=== PATIENT | female | born 1930 | race Caucasian/White ===

== ENCOUNTER → 2016-12-09 | Outpatient (CLI) | payer MEDICARE ==
[~2016-12-09] MED LIST: AMITRIPTYLINE TOP; ASPI-983 PO; CALC1TAB PO; CFTR250V IM; CHOL100011 PO; CITALOPRAM TOP; CLOB15CR3 TP; CLOP75TA PO; CLOP75TA69 PO; CYAN100053 IJ; DIAZ2TAB2 PO; DIAZ5TAB3 PO; ESTR42.52 VG; EZET10TA5 PO; FENT1PAT6 TD; FLUT9.9S NS; LACT1CAP58 PO; LACT1CAP62 PO; LEVO88TA2 PO; LVT.088T PO; METH454P PO; METH479P4 PO; MULT-1029 PO; OMEG-160 PO; OMEP40CA36 PO; ONDA-42 SL
== END ==
LOC: CARD 13:08
PROVIDERS: ATTEND Physician Assistant
DX: I65.23 Occlusion and stenosis of bilateral carotid arteries (principal); E78.2 Mixed hyperlipidemia; I10 Essential (primary) hypertension; I73.9 Peripheral vascular disease, unspecified
CPT/HCPCS: 93306

== ENCOUNTER → 2017-01-03 | Outpatient (CLI) | payer MEDICARE ==
--- NOTE | 2017-01-03 15:49 | Diagnostic Imaging Report ---
PROCEDURE: MRI lumbar spine. TECHNIQUE: Multiplanar, multisequence MRI of the lumbar spine was performed without contrast. INDICATION: Persistent mid and lower back pain. Patient fell 03/08/2016 with fractures of T10 and T12. FINDINGS: Lumbar spine shows good alignment. There is kyphoplasty cement within the L3 vertebral body in good position. The L3 vertebral body height is unchanged since previous CT scan of 01/15/2016. The remaining vertebral bodies show good preservation of body height. L1-L2: The disc shows normal contour. There is moderate posterior facet and ligamentous hypertrophy which is causing rerr-tv-dqqzwoaj encroachment upon the lateral recesses. L2-L3: There is settling of the disc space. There is eccentric disc herniation to the left extending into the left neural foramen. There is moderate posterior facet and ligamentous hypertrophy. These changes are causing mougvkya-ef-naqbwx encroachment upon the left lateral recess and left neural foramen. Minimal AP central canal dimension is approximately 6 mm. L3-L4: There is mild broad-based disc bulge. Moderate posterior facet and ligamentous hypertrophy present causing mild bilateral encroachment upon the lateral recesses. L4-L5: Minimal disc bulge present. Moderate posterior facet and ligamentous hypertrophy which is causing amff-ol-lmezdarz encroachment upon the lateral recesses and neural foramina. L5-S1: There is loss of disc space. There is hypertrophic bony change, most prominent in the midline and eccentric to the left. Mild posterior facet and ligamentous hypertrophy present. The SI joints are symmetrical. No evidence of sacral alar stress fractures. IMPRESSION: 1. No acute compression fractures are demonstrated. 2. Diffuse degenerative disc disease with facet and ligamentous hypertrophy. This is causing multilevel encroachment upon the lateral recesses and neural foramina as discussed above. No acute findings are demonstrated. Dictated by: Dictated on workstation # [id number]
--- NOTE | 2017-01-03 15:52 | Diagnostic Imaging Report ---
INDICATION: History of previous fall in February with compression fractures. Patient is having persistent back pain. COMPARISON: 03/25/2016. FINDINGS: Sagittal view shows good alignment of the vertebral bodies. Compression fracture of T10 and T12 are again noted. There has been some continued loss of body height at T12 with a somewhat plana appearance now. There is no edema now within either vertebral body consistent with healed compression fractures. The remaining thoracic vertebral bodies show normal height with no edema. No evidence of focal disc herniations. No spinal stenosis is demonstrated. Mild encroachment upon the neural foramen noted bilaterally at T10-T11 due to settling of the disc space and hypertrophic endplate changes. The thoracic cord appears normal without evidence of encroachment. No paraspinal masses. IMPRESSION: 1. Old healed compression fractures of T10 and T12. 2. There is some foraminal encroachment at T10-T11 bilaterally, though there is no central canal stenosis. 3. The thoracic cord appears normal. Dictated by: Dictated on workstation # [id number]
== END ==
LOC: RAD 12:53
PROVIDERS: ATTEND Orthopaedic Surgery
DX: M51.16 Intervertebral disc disorders with radiculopathy, lumbar region (principal); M54.6 Pain in thoracic spine
CPT/HCPCS: 72146; 72148

== ENCOUNTER → 2017-01-08 | Outpatient (CLI) | payer MEDICARE ==
--- NOTE | 2017-01-08 13:31 | Diagnostic Imaging Report ---
EXAMINATION: Three views of the thoracic spine. INDICATION: Thoracic spine pain. FINDINGS: There are compression fractures involving T10, T12, and probably a mild compression fracture of the T11 vertebral body. When correlated with the previous MRI from 01/03/2017, these appear to be chronic. There is kyphoplasty change at the L3 vertebral level. The alignment of the posterior spinal line appears satisfactory. There is prominent kyphotic curvature of the thoracic spine which appears to be exaggerated by the compression fractures of the lower thoracic levels. IMPRESSION: Compression fractures of T10, T11, and T12 which appear to be chronic based on the recent MRI of 01/03/2017. Dictated by: Dictated on workstation # [id number]
== END ==
LOC: RAD 10:10
DX: M48.54XA Collapsed vertebra, not elsewhere classified, thoracic region, initial encounter for fracture (principal)
CPT/HCPCS: 72072

== ENCOUNTER → 2017-04-10 | Outpatient (CLI) | payer MEDICARE ==
[~2017-04-10] VITALS: Ht 157.5 cm; Wt 47.6 kg
[~2017-04-10] MED LIST changes: +ZOLEDRONATE 5 MG/100 ML (RECLAST) BTL IV NR
[2017-04-10 12:45] VITALS: BP 141/62
[2017-04-10 13:16] LABS: MEAN PLATELET VOLUME 10.1 FL (7.4-10.4); RED BLOOD COUNT 3.98 10^6/uL (4.35-5.85); RED CELL DISTRIBUTION WIDTH 12.7 % (10.0-14.5)
[2017-04-10 13:34] LABS: ALANINE AMINOTRANSFERASE 22 U/L (0-55); ANION GAP 10 MMOL/L (5-14); ASPARTATE AMINO TRANSFERASE 31 U/L (5-34); BILIRUBIN,TOTAL 0.7 MG/DL (0.1-1.0); BLOOD UREA NITROGEN 13 MG/DL (7-18); BUN/CREATININE RATIO 16; CARBON DIOXIDE 27 MMOL/L (21-32); CHLORIDE 95 MMOL/L (98-107); CREATININE SERUM 0.79 MG/DL (0.60-1.30); GFR ESTIMATED > 60; GLUCOSE 93 MG/DL (70-105); POTASSIUM 3.9 MMOL/L (3.6-5.0); SODIUM 132 MMOL/L (135-145); TOTAL PROTEIN 6.8 GM/DL (6.4-8.2)
[2017-04-10 13:53] LABS: THYROID STIMULATING HORMONE 0.82 UIU/ML (0.35-4.94)
== END ==
LOC: SDC 12:39
PROVIDERS: ATTEND Nurse Practitioner Family
DX: M81.8 Other osteoporosis without current pathological fracture (principal); R53.81 Other malaise; R53.83 Other fatigue
CPT/HCPCS: 36415; 80053; 84443; 85027; 96365

== ENCOUNTER → 2018-04-13 | Outpatient (CLI) | payer MEDICARE ==
[~2018-04-13] VITALS: Ht 157.5 cm; Wt 47.6 kg
[~2018-04-13] MED LIST changes: +ZOLEDRONATE (NON-FORMULARY) 100 ML IV NR; +ZOLEDRONATE (NON-FORMULARY) 100 ML IV ONE; -ZOLEDRONATE 5 MG/100 ML (RECLAST) BTL IV NR
[2018-04-13 14:18] VITALS: BP 167/69
== END ==
LOC: SDC 13:40
PROVIDERS: ATTEND Nurse Practitioner Family
DX: M81.0 Age-related osteoporosis without current pathological fracture (principal)
CPT/HCPCS: 96365

== ENCOUNTER → 2019-01-12 | Outpatient (CLI) | payer MEDICARE ==
[~2019-01-12] MED LIST changes: -ZOLEDRONATE (NON-FORMULARY) 100 ML IV NR; -ZOLEDRONATE (NON-FORMULARY) 100 ML IV ONE
--- NOTE | 2019-01-12 12:47 | Diagnostic Imaging Report ---
Indication: Back pain. Time of exam: 10:04 AM 3 views of the lumbar spine were obtained. Curvature and alignment is within normal limits. Chronic compression fracture deformity involving T12 vertebral body as well as T10 vertebral bodies noted. There are kyphoplasty changes at L3. Remaining lumbar vertebrae show normal stature. No acute fracture is seen. Multilevel degenerative disc disease with variable disc space narrowing and marginal spurring. Abdominal aorta is heavily calcified. Impression: Chronic and postsurgical changes. No acute abnormality is detected. Dictated by: Dictated on workstation # [id number]
== END ==
LOC: RAD 09:39
PROVIDERS: ATTEND Nurse Practitioner Family
DX: M54.5 Low back pain (principal); Z98.890 Other specified postprocedural states
CPT/HCPCS: 72100

== ENCOUNTER 2019-01-18 09:47 | Emergency (ER) | payer MEDICARE ==
[~2019-01-18] VITALS: Ht 157 cm; Wt 50.0 kg
[2019-01-18] MEDS ORDERED: KETOROLAC 30 MG/ML VIAL IM STA (10:29)
--- NOTE | 2019-01-18 10:35 | ED Back Pain ---
General Chief Complaint: Back Problems Stated Complaint: LEFT LEG PAIN Nursing Triage Note: PT PRESENTS TO ED WITH COMPLAINTS OF LOWER BACK/HIP PAIN X 2 1/2 WEEKS. PT REPORTS ON 01/05/19 SHE WAS SEEN AT DR JOHNSTON OFFICE AND RECIEVED A CORTISONE SHOT IN HER R HIP. REPROTS PAIN SEEMED TO GET BETTER THEN ON 01/08/19 SHE STARTED HAVING PAIN IN HER L HIP/LOWER BACK AND AGAIN SAW DR LR AND RECIEVED A CORTISOE SHOT ON HER L SIDE. PT REPORTS NO IMPROVEMENT WITH THAT INJECTION. PT ALSO REPORTS SHE HAD AN XRAY OF HER LOWER BACK ON 01/12/19 AND IT SHOWED A BULDGING DISK. PT ALSO REPORTS SHE DOES NOT TOLERATE OPIOD PAIN MEDICATION VERY WELL. Nursing Sepsis Screen: No Definite Risk Source of Information: Patient Exam Limitations: No Limitations (JHONATHAN GALINDO STUDENT) History of Present Illness Date Seen by Provider: Jan 18, 2019 Time Seen by Provider: 10:10 Initial Comments The patient is a wd/wn 88 y/o female who is here with a chief complaint of back/hip pain. She states that the pain in her back and hip began about 1 1/2 weeks ago. She was initially experiencing pain in her right side and received a steroid injection last week in Dr. Lr's office. She says the pain in hir right hip has subsided and now she is experiencing sharp 8/10 pain in her left hip. She reports a longstanding history of sciatica. She denies any recent trauma, loss of sensation, weakness, or loss of bowel or bladder. She admits to GERD and states that she has a great deal of difficulty with most pain medications due to upset stomach. Timing/Duration: 1 Week Severity: Moderate Pain/Injury Location: Back, Lower Extremity Radiation: Lower Legs Modifying Factors: Improves With Immobilization; Worse With Movement Associated Symptoms: No numbness in legs/feet, No sensory/motor loss, No loss of bladder control, No loss of bowel control (JHONATHAN GALINDO STUDENT) Location: Other (low back and left hip) Timing/Duration: 1 Week Severity: Moderate Pain/Injury Location: Back, Lower Extremity Radiation: Lower Legs Modifying Factors: Improves With Immobilization, Improves With Rest Associated Symptoms: No muscle spasms, No weakness, No numbness in legs/feet, No sensory/motor loss, No loss of bladder control, No loss of bowel control (GET HERNANDEZ MD) Allergies and Home Medications Allergies Coded Allergies: NSAIDS (Non-Steroidal Anti-Inflamma (Unverified Allergy, Unknown, 07/28/14) Sulfa (Sulfonamide Antibiotics) (Unverified Allergy, Unknown, 07/28/14) amoxicillin (Unverified Allergy, Unknown, 07/28/14) atorvastatin (Unverified Allergy, Unknown, 07/28/14) azithromycin (Unverified Allergy, Unknown, 07/28/14) cerivastatin (Unverified Allergy, Unknown, 07/28/14) clindamycin (Unverified Allergy, Unknown, 07/28/14) codeine (Unverified Allergy, Unknown, 07/28/14) ezetimibe (Unverified Allergy, Unknown, 07/28/14) ibuprofen (Unverified Allergy, Unknown, 07/28/14) lovastatin (Unverified Allergy, Unknown, 07/28/14) rosuvastatin (Unverified Allergy, Unknown, 07/28/14) tramadol (Unverified Allergy, Unknown, 07/28/14) Home Medications Aspirin 81 Mg Tablet.dr, 81 MG PO DAILY Prescribed by: ALISON SHETTY on 08/03/15 0812 Calcium Carbonate/Vitamin D3 1 Each Tab.chew, 1 TAB PO DAILY, (Reported) Cholecalciferol 1,000 Unit Capsule, 1,000 UNIT PO DAILY, (Reported) Clobetasol Propionate/Emoll 15 Gm Cream..g., TP WEEKLY ON TUESDAYS, (Reported) Clopidogrel Bisulfate 75 Mg Tablet, 75 MG PO DAILY, (Reported) Diazepam 2 Mg Tablet, 1 MG PO HS, (Reported) TAKES 1/2 (2MG) TABLET Ezetimibe 10 Mg Tablet, 10 MG PO HS Prescribed by: ALISON SHETTY on 08/03/15 0812 Fentanyl 1 Each Patch.td72, 12 MCG TD Q72H Prescribed by: ANY MALONEY on 01/15/16 1312 Fluticasone Propionate 9.9 Ml [place].susp, 2 SPRAYS NS DAILY PRN for ALLERGIES, (Reported) Lact Cmb2/S.thermophl/Bif Cmb1 1 Each Capsule, 1 CAP PO DAILY, (Reported) Levothyroxine Sodium 88 Mcg Tablet, 88 MCG PO DAILY, (Reported) Methylcellulose 479 Gm Powder, 1 TBS PO DAILY, (Reported) Mu-Vits-Min Th/Lycopene/Lutein 1 Each Tablet, 1 TAB PO DAILY, (Reported) Cactus-3/Dha/Epa/Fish Oil 1 Each Capsule, 1,000 MG PO TID, (Reported) Omeprazole 40 Mg Capsule.dr, 40 MG PO DAILY, (Reported) [Amitriptyline Cream] , 10 MG TOP HS, (Reported) COMPOUNDED CREAM, APPLIED TO WRISTS AT BEDTIME Patient Home Medication List Home Medication List Reviewed: Yes (GET HERNANDEZ MD) Review of Systems Constitutional: No fever, No malaise Respiratory: No cough, No short of breath (JHONATHAN GALINDO STUDENT) Constitutional: see HPI EENTM: no symptoms reported Respiratory: no symptoms reported Cardiovascular: no symptoms reported Gastrointestinal: no symptoms reported Musculoskeletal: see HPI, back pain, joint pain, muscle pain Skin: no symptoms reported Psychiatric/Neurological: No Symptoms Reported (GET HERNANDEZ MD) Past Uhokkkq-Urrtzc-Zxxqoe Hx Past Med/Social Hx: Reviewed Nursing Past Med/Soc Hx (GET HERNANDEZ MD) Patient Social History Alcohol Use: Denies Use Recreational Drug Use: No Smoking Status: Never a Smoker Recent Foreign Travel: No Contact w/Someone Who Travel: No Recent Infectious Disease Expo: No Recent Hopitalizations: No Physical Abuse: No Sexual Abuse: No Mistreated: No Fear: No (JHONATHAN GALINDO) Immunizations Up To Date Tetanus Booster (TDap): Unknown PED Vaccines UTD: No Date of Pneumonia Vaccine: Oct 27, 2015 (JHONATHAN GALINDO) Past Medical History Surgeries: Yes (cystoscopy by Dr. Soler 2013; ANGIOPLASTIES TO LEGS; VERTEBROPLASTY L3) Abdominal, Cardiac, Orthopedic, Tonsillectomy, Vascular Surgery Respiratory: No Cardiac: Yes Peripheral Vascular Neurological: Yes Neuropathy Reproductive Disorders: Yes (vaginal atrophy and dryness) Genitourinary: No Gastrointestinal: Yes Chronic Constipation, Irritable Bowel Musculoskeletal: Yes Arthritis, Chronic Back Pain Endocrine: Yes Hypothyroidsim Cancer: No Psychosocial: No Integumentary: No Blood Disorders: No (JHONATHAN GALINDO) Family Medical History Reviewed Nursing Family Hx (GET HERNANDEZ MD) Physical Exam Vital Signs Vital Signs - First Documented 01/18/19 09:58 Temp 37.1 Pulse 90 Resp 16 B/P (MAP) 140/62 (88) Pulse Ox 99 (GET HERNANDEZ MD) Vital Signs Capillary Refill : Less Than 3 Seconds (JHONATHAN GALINDO MED STUDENT) Height, Weight, BMI Height: 5'2.00" Weight: 105lbs. 0.0oz. 47.293163xa; 20.00 BMI Method:Stated General Appearance: No Apparent Distress, WD/WN Cardiovascular: Regular Rate, Rhythm, No Edema, No Murmur Respiratory: Chest Non Tender, Lungs Clear, Normal Breath Sounds Peripheral Pulses: 1+ Dorsalis Pedis (R), 1+ Left Dors-Pedis (L) Extremity: No Pedal Edema, Inflammation Neurologic/Psychiatric: Alert, Oriented x3, No Motor/Sensory Deficits Skin: Normal Color, Warm/Dry (JHONATHAN GALINDO MED STUDENT) General Appearance: No Apparent Distress, WD/WN Cardiovascular: Regular Rate, Rhythm, No Edema, No Murmur Respiratory: Lungs Clear, Normal Breath Sounds Peripheral Pulses: 1+ Dorsalis Pedis (R), 1+ Left Dors-Pedis (L) Back: No CVA Tenderness, Other (tender in the region and SI joint and left hip. Retains range of motion.) Neurologic/Psychiatric: Alert, Oriented x3 Skin: Normal Color, Warm/Dry (GET HERNANDEZ MD) Progress/Results/Core Measures Results/Orders My Orders Orders - GET HERNANDEZ MD Pelvis With Left Hip 2-3 Views (01/18/19 10:15) Ketorolac Injection (Toradol Injection) (01/18/19 10:29) (GET HERNANDEZ MD) Vital Signs/I&O 01/18/19 09:58 Temp 37.1 Pulse 90 Resp 16 B/P (MAP) 140/62 (88) Pulse Ox 99 (GET HERNANDEZ MD) Blood Pressure Mean: 88 Progress Progress Note : Time: 10:35 Progress Note The patient is resting comfortably in the exam room. She will be administered IM torodol for pain. She will be evaluated with plain radiograph of hip and pelvis to rule out fracture. (JHONATHAN GALINDO MED STUDENT) Progress Note : Progress Note I seen and evaluated the patient and agree with above except as indicated. Have directed the plan of care. Patient is here with left hip and low back pain. Also has pain to the lower leg on the left lateral aspect. Denies any recent injury. Has long-standing degenerative changes in the lumbar area. Did have lumbar spine x-ray recently. This was reviewed and shows significant degeneration. No acute fracture. Has history of kyphoplasty in the region of L3. She does not tolerate most oral meds including ibuprofen due to stomach upset and she states makes her feels weird. She does not have anaphylaxis to NSAIDs though. We will give Toradol 15 mg IM and x-ray left hip and pelvis. Monitor patient. 1141: X-ray results noted below. She does have fairly significant degeneration. The Toradol significantly helped her pain. She has appointment with Dr. Lr tomorrow. We will send a copy of the chart to his office. At this point I think she can be safely discharged home. She will discuss with her doctor about other medication options and or further evaluation or further steroid injections versus systemic steroids. Discharged home with return precautions. Patient and family verbalize understanding instructions and agreement with plan. (GET HERNANDEZ MD) Diagnostic Imaging Diagonstic Imaging: Xray Plain Films/CT/US/NM/MRI: pelvis, hip Comments [facility], [place] NAME: [facility] REC#: [id number] PT STATUS: REG ER : 1930 PHYSICIAN: GET HERNANDEZ MD ADMIT DATE: 01/18/19/ER Draft Date of Exam:01/18/19 PELVIS WITH LEFT HIP 2-3 VIEWS INDICATION: Pain FINDINGS: There are arthritic changes involving left greater than right hips. There is kyphoplasty treatment of the L3 vertebral body fracture, an acute injury is not identified. 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 Dictated on workstation # [id number] Dict: 01/18/19 1123 Trans: 01/18/19 1131 LOUISE [id number] Interpreted by: CHING BEDOLLA Electronically signed by: Reviewed: Reviewed by Me (GET HERNANDEZ MD) Departure Impression Primary Impression: Left hip pain Additional Impressions: Acute low back pain Qualified Codes: M54.42 - Lumbago with sciatica, left side Radiculopathy, lumbar region Disposition: 01 HOME, SELF-CARE Condition: Stable Departure-Patient Inst. Decision time for Depature: 11:43 (GET HERNANDEZ MD) Referrals: RIDGE LR MD (PCP/Family) Primary Care Physician Patient Instructions: Low Back Pain in Adults, Hip Pain, Radiculopathy (DC) Add. Discharge Instructions: All discharge instructions reviewed with patient and/or family. Voiced understanding. Follow-up with Dr. Lr tomorrow as scheduled. You can continue the Tylenol xtay-xji-adhbpvj 2 tablets every 6 hours as needed for pain. Do not exceed this dosing. Discussed with Dr. Lr regarding other medication options. Toradol seemed to help you nicely today. There are other options that are less difficult to tolerate with respect to your stomach. Return for worse pain, weakness, numbness between your legs, difficulty with walking or going to the bathroom or other concerns as needed. You may continue the Aspercreme lidocaine roll-on that you have been using. Copy Copies To 1: RIDGE LR MD, JOSHUA K MED STUDENT Jan 18, 2019 10:35 GET HERNANDEZ MD Jan 18, 2019 11:45
--- NOTE | 2019-01-18 11:31 | Diagnostic Imaging Report ---
INDICATION: Pain FINDINGS: There are arthritic changes involving left greater than right hips. There is kyphoplasty treatment of the L3 vertebral body fracture, an acute injury is not identified. 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 Dictated by: Dictated on workstation # [id number]
[2019-01-18 12:02] VITALS: BP 132/60
== END 2019-01-18 12:02 | disposition home or self-care (01) ==
LOC: EDUNIT# 09:47 → ER 09:48
DX: M25.552 Pain in left hip (principal); M54.16 Radiculopathy, lumbar region; G62.9 Polyneuropathy, unspecified; E03.9 Hypothyroidism, unspecified; K21.9 Gastro-esophageal reflux disease without esophagitis; K58.9 Irritable bowel syndrome, unspecified; Z90.89 Acquired absence of other organs; Z88.6 Allergy status to analgesic agent; Z88.2 Allergy status to sulfonamides; Z88.0 Allergy status to penicillin; Z88.8 Allergy status to other drugs, medicaments and biological substances; Z88.1 Allergy status to other antibiotic agents; Z88.5 Allergy status to narcotic agent; Z79.82 Long term (current) use of aspirin; Z79.02 Long term (current) use of antithrombotics/antiplatelets; Z79.51 Long term (current) use of inhaled steroids

== ENCOUNTER → 2019-04-15 | Outpatient (CLI) | payer MEDICARE ==
[~2019-04-15] VITALS: Ht 157.5 cm; Wt 47.2 kg
[~2019-04-15] MED LIST changes: +ZOLEDRONATE (RECLAST) 5 MG/100 ML IV ONE
[2019-04-15 12:42] VITALS: BP 177/83
== END ==
LOC: SDC 11:24
DX: M81.8 Other osteoporosis without current pathological fracture (principal)
CPT/HCPCS: 96365